=== PATIENT | male | born 1980 | race American Indian/Alaskan Native ===

== ENCOUNTER 2016-09-15 06:03 | Day surgery (SDC) | payer SELFPAY ==
[2016-09-15 10:04] VITALS: BP 145/99
== END 2016-09-15 15:16 | disposition home or self-care (01) ==
LOC: ED 06:03 → OR 15:15
PROVIDERS: ATTEND Emergency Medicine
DX: R07.89 Other chest pain (principal)
CPT/HCPCS: 93005; 93010